=== PATIENT | female | born 1975 | race Caucasian/White ===

== ENCOUNTER 2019-02-12 21:13 | Emergency (ER) | payer OTHER ==
[2019-02-12 21:24] VITALS: BP 120/81; PULSE 98; TEMP 98.8; BMI 31.2
--- NOTE | 2019-02-12 22:25 | PDOC ---
History of Present Illness - General Chief Complaint: Respiratory Stated Complaint: THROAT PROBLEM Time Seen by Provider: 02/12/19 22:16 - History of Present Illness Initial Comments: 02/12/19 22:21 43 y/o F with PMH of HTN presents for evaluation of cough with associated fevers , chills and night sweats x10 days. Also nasal congestion and facial pressure Past History - Past Medical History Allergies/Adverse Reactions: Allergies Allergy/AdvReac Type Severity Reaction Status Date / Time No Known Allergies Allergy Verified 02/12/19 22:02 Home Medications: Ambulatory Orders Budesonide [Rhinocort Allergy] 1 spray NS ONCE #1 spray.pump 02/12/19 Ciprofloxacin HCl [Cipro] 500 mg PO BID #10 tablet 02/12/19 Hydrochlorothiazide 25 mg PO DAILY 02/12/19 Nebivolol HCl [Bystolic] 10 mg PO DAILY 02/12/19 COPD: No HTN: Yes - Suicide/Smoking/Psychosocial Hx Smoking History: Never smoked Hx Alcohol Use: No Drug/Substance Use Hx: No Review of Systems - Review of Systems Constitutional: Yes: Chills, Fever, Night Sweats HEENTM: Yes: Nose Congestion Respiratory: Yes: Cough *Physical Exam - Vital Signs Last Vital Signs Temp Pulse Resp BP Pulse Ox 98.8 F 98 H 19 120/81 97 02/12/19 21:20 02/12/19 21:20 02/12/19 21:20 02/12/19 21:20 02/12/19 21:20 - Physical Exam Comments: 02/12/19 22:2 HEAD: NC/AT EYES: Conjuntiva clear Ears: Canals and TM's normal NOSE: No d/c tender maxiallary sinuses and frontal sinuses. turbinated injected THROAT: Moist mucous membrances, oral pharanx clear, uvula midline NECK: Supple without adenopathy CARDIAC: S1 S2 LUNGS: CTA Full and Equal breath sounds ABDOMEN: Soft NT ND MS: Full ROM in all joints without edema NEUROLOGIC: No gross sensory or motor deficits, NVID SKIN: Normal color and temperature no lesions or rashes Medical Decision Making - Medical Decision Making 02/12/19 22:23 will treat for bacterial sinusitis pt request cipro as opposed to augmentin I'm ok with this *DC/Admit/Observation/Transfer Diagnosis at time of Disposition: Bacterial sinusitis - Discharge Dispostion Disposition: HOME Condition at time of disposition: Stable Decision to Admit order: No - Prescriptions Prescriptions: Budesonide [Rhinocort Allergy] 1 spray NS ONCE #1 spray.pump Ciprofloxacin HCl [Cipro] 500 mg PO BID #10 tablet - Referrals Referrals: Darren Vale MD [Staff Physician] - - Patient Instructions Printed Discharge Instructions: Sinusitis, DI for Sinusitis Additional Instructions: Return to the emergency room should symptoms worsen or go unresolved. Please take the medication as directed and follow up with ENT doctor in 1-2 days without fail. - Post Discharge Activity
== END 2019-02-12 22:31 | disposition home or self-care (01) ==
LOC: JERFT 21:13
DX: J32.8 Other chronic sinusitis (principal); B96.89 Other specified bacterial agents as the cause of diseases classified elsewhere; I10 Essential (primary) hypertension
CPT/HCPCS: 99281-25